=== PATIENT | female | born 1995 | race Caucasian/White ===

== ENCOUNTER 2022-07-28 17:08 | Emergency (ER) | payer SELFPAY ==
[~2022-07-28] VITALS: Ht 162.6 cm; Wt 127.0 kg
== END 2022-07-28 18:33 | disposition home or self-care (01) ==
LOC: ER 17:19
DX: R20.2 Paresthesia of skin (principal); R07.89 Other chest pain
CPT/HCPCS: 71046; 93005; 93041; 99282